=== PATIENT | female | born 1935 | race Caucasian/White ===

== ENCOUNTER → 2018-03-28 | Day surgery (SDC) | payer MEDICARE ==
[~2018-03-28] VITALS: Ht 165.1 cm; Wt 88.5 kg
[~2018-03-28] MED LIST: ALEVE220 M1 PO; CEFTIN500 MG PO; CEPHALEXIN250 M2 PO; COSOPT1 ML; DORZOLAMIDE2 % OP; LISINOPRIL20 M1 OR; LUMIGAN0.03 % OP; METOPROL TAR25 MG PO; METRONIDAZOL500 MG PO; NATURE-THROI16.25 MG; OXTELLAR XR150 MG PO; PERCOCET 5/325M1 TAB PO; TAMSULOSIN HCL0.4 MG PO
[2018-03-28 10:06] VITALS: BP 139/75
== END | disposition home or self-care (01) ==
LOC: ORM 06:44
PROVIDERS: ATTEND Urology
PROC: 0TF3XZZ Fragmentation in Right Kidney Pelvis, External Approach (ICD-10-PCS; principal; 2018-03-28)
DX: N20.0 Calculus of kidney (principal); M79.7 Fibromyalgia; N81.10 Cystocele, unspecified; N39.46 Mixed incontinence; Z87.440 Personal history of urinary (tract) infections
CPT/HCPCS: J1956

== ENCOUNTER 2018-04-01 10:49 | Emergency (ER) | payer MEDICARE ==
[~2018-04-01] VITALS: Ht 165.1 cm; Wt 88.0 kg
[2018-04-01 12:06] LABS: URINE BILIRUBIN - DIPSTICK NEGATIVE (NEGATIVE); URINE BLOOD DIPSTICK NEGATIVE (NEGATIVE); URINE COLOR YELLOW; URINE GLUCOSE - DIPSTICK NEGATIVE (NEGATIVE); URINE KETONE NEGATIVE (NEGATIVE); URINE LEUK ESTERASE TRACE (NEGATIVE); URINE NITRITE - DIPSTICK NEGATIVE (Negative); URINE PH 5.5 (4.5-8.0); URINE PROTEIN - DIPSTICK NEGATIVE (NEG-TRACE); URINE UROBILINOGEN - DIPSTICK 0.2 E.U./dL (0.2)
[2018-04-01 12:07] LABS: URINE CLARITY CLEAR
[2018-04-01 12:07] LABS: HEMATOCRIT 45.1 % (37.0-47.0); HEMOGLOBIN 15.1 g/dl (12.0-16.0); IMMATURE GRANULOCYTES 0.3 % (0.0-1.0); MEAN CELL VOLUME 93.4 fL CALC (80.0-100.0); MEAN CORPUSCULAR HGB 31.3 pG CALC (26.0-32.0); MEAN CORPUSCULAR HGB CONC 33.5 g/L CALC (32.0-36.0); NEUT# 4.22 thou/uL (2.00-7.15); RED BLOOD COUNT 4.83 mill/uL (4.20-5.60); RED CELL DISTRI WIDTH 12.4 % (11.5-15.5)
[2018-04-01 12:27] LABS: ALBUMIN 4.4 g/dL (3.2-5.0); ALKALINE PHOSPHATASE 117 u/l (38-126); ANION GAP 18 (6-22 (CALC)); BILIRUBIN, TOTAL 0.8 mg/dL (0.0-1.4); BUN 16 mg/dL (8-23); BUN/CREATININE RATIO 25 (12-20 (CALC)); CARBON DIOXIDE 27 mmol/l (22-30); CHLORIDE 103 mmol/l (95-108); CREATININE 0.7 mg/dL (0.5-1.0); GFR > 60 ML/MIN (>=60 (CALC)); GFR FOR AFR.AMER. > 60 ML/MIN (>=60 (CALC)); POTASSIUM 4.2 mmol/l (3.5-5.1); SGOT/AST 27 u/l (9-36); SGPT/ALT 35 u/l (11-66); SODIUM 144 mmol/l (137-146)
[2018-04-01 14:00] VITALS: BP 160/72
== END 2018-04-01 13:58 | disposition home or self-care (01) ==
LOC: ED 10:49
PROVIDERS: Emergency Medicine
DX: I10 Essential (primary) hypertension (principal); N23 Unspecified renal colic; K21.9 Gastro-esophageal reflux disease without esophagitis; Z87.442 Personal history of urinary calculi

== ENCOUNTER 2021-01-16 03:40 | Emergency (ER) | payer MEDICARE ==
[~2021-01-16] VITALS: Ht 165.1 cm; Wt 88.6 kg
[2021-01-16 04:20] LABS: HEMATOCRIT 44.3 % (37.0-47.0); HEMOGLOBIN 14.5 g/dl (12.0-16.0); IMMATURE GRANULOCYTES 0.3 % (0.0-5.0); MEAN CELL VOLUME 95.5 fL CALC (80.0-100.0); MEAN CORPUSCULAR HGB 31.3 pG CALC (26.0-32.0); MEAN CORPUSCULAR HGB CONC 32.7 g/dL CAL (32.0-36.0); NEUT# 3.75 thou/uL (2.00-7.15); RED BLOOD COUNT 4.64 mill/uL (4.20-5.60); RED CELL DISTRI WIDTH 12.8 % (11.5-15.5)
[2021-01-16 04:42] LABS: ALBUMIN 4.8 g/dL (3.2-5.0); ALKALINE PHOSPHATASE 111 u/l (38-126); ANION GAP 10 (6-22 (CALC)); BILIRUBIN, TOTAL 0.7 mg/dL (0.0-1.4); BUN 21 mg/dL (8-23); BUN/CREATININE RATIO 29 (12-20 (CALC)); CARBON DIOXIDE 29 mmol/l (22-30); CHLORIDE 102 mmol/l (95-108); CREATININE 0.7 mg/dL (0.5-1.0); GFR > 60 ML/MIN (>=60 (CALC)); GFR FOR AFR.AMER. > 60 ML/MIN (>=60 (CALC)); SGOT/AST 30 u/l (9-36); SODIUM 137 mmol/l (137-146)
[2021-01-16 04:47] LABS: TOTAL PROTEIN 8.8 g/dL (6.3-8.2)
[2021-01-16 04:54] LABS: MYOGLOBIN 49 ng/mL (0 - 62)
[2021-01-16 05:52] LABS: URINE BILIRUBIN - DIPSTICK NEGATIVE (NEGATIVE); URINE BLOOD DIPSTICK TRACE-LYSED (NEGATIVE); URINE COLOR YELLOW; URINE GLUCOSE - DIPSTICK NEGATIVE (NEGATIVE); URINE KETONE NEGATIVE (NEGATIVE); URINE LEUK ESTERASE NEGATIVE (NEGATIVE); URINE NITRITE - DIPSTICK NEGATIVE (Negative); URINE PH 6.5 (4.5-8.0); URINE PROTEIN - DIPSTICK NEGATIVE (NEG-TRACE); URINE UROBILINOGEN - DIPSTICK 0.2 E.U./dL (0.2)
[2021-01-16] MEDS ORDERED: TOPROL XL50 MG PO (06:19)
[2021-01-16 06:46] VITALS: BP 164/78
== END 2021-01-16 06:46 | disposition home or self-care (01) ==
LOC: ED 03:40
PROVIDERS: Family Medicine
DX: I48.91 Unspecified atrial fibrillation (principal); I48.92 Unspecified atrial flutter; I10 Essential (primary) hypertension; K21.9 Gastro-esophageal reflux disease without esophagitis